=== PATIENT | female | born 1945 | race Caucasian/White ===

== ENCOUNTER → 2016-12-17 | Outpatient (CLI) | payer OTHER ==
[~2016-12-17] MED LIST: APR10 PO; CPR500 PO; DOCU100C31 PO; ESTR0.3T PO; LORA-741 PO; LRS10 PO; MAGN400T6 PO; MELA1TAB54 PO; METO50TA16 PO; MULT-506 PO; RXC5 PO; SIMV20TA5 PO; ZNTT/150 PO
--- NOTE | 2016-12-17 09:43 | DIAGNOSTIC IMAGING REPORT ---
PELVIS 1 OR 2 VIEWS CLINICAL HISTORY: HIP PAIN pain COMPARISON: 04/15/2011 DISCUSSION: Pre-existing total right hip arthroplasty. Significant degenerative narrowing left joint space. Mild sclerosis acetabular margins. No evidence for acetabular protrusion. Moderate degenerative change sacroiliac joints. There is no evidence for soft tissue swelling. IMPRESSION: 1. Moderate/significant narrowing left hip joint space. 2. Status post total right hip prosthetic. 3. Moderate degenerative change sacroiliac joints. Electronically signed by: Nico Lu M.D. 12/17/2016 9:42 AM Dictated Date/Time: 12/17/2016 9:40 AM
== END | disposition home or self-care (01) ==
LOC: C.RDSM 15:54
PROVIDERS: ATTEND Family Medicine
DX: M25.559 Pain in unspecified hip (principal); Z96.641 Presence of right artificial hip joint

== ENCOUNTER → 2017-05-31 | Outpatient (CLI) | payer OTHER ==
--- NOTE | 2017-05-31 09:36 | DIAGNOSTIC IMAGING REPORT ---
RIGHT FOOT 3 VIEWS CLINICAL HISTORY: Right foot pain. FINDINGS: 3 views of the right foot are obtained. No prior studies are available for comparison at the time of dictation. The skeletal structures are osteopenic. No fracture is seen. There is a hammertoe deformity of the fifth toe. Mild arthritic change is present the first metatarsophalangeal joint. There is degenerative change with slight offset at the second tarsometatarsal articulation as well as widening between the base of the first and second metatarsals. This suggests chronic Lisfranc injury. Degenerative spurring is seen along the dorsal aspect of the tarsal bones. There is a large plantar calcaneal enthesophyte. The overlying soft tissues are within normal limits. IMPRESSION: 1. Osteopenia and arthritic change as above. No fracture is seen. 2. Findings suggest chronic Lisfranc injury. 3. Large plantar heel spur. Electronically signed by: Amador Medina M.D. 05/31/2017 9:35 AM Dictated Date/Time: 05/31/2017 9:33 AM
--- NOTE | 2017-05-31 09:44 | DIAGNOSTIC IMAGING REPORT ---
LEFT FOOT MIN 3 VIEWS CLINICAL HISTORY: 71 years-old Female presenting with chronic bilateral foot pain. TECHNIQUE: Frontal, oblique, and lateral views of the left foot were obtained. COMPARISON: Comparison made to plain radiographs of the right foot performed the same time. FINDINGS: Osteopenia. This limits evaluation for nondisplaced fracture. Within this limitation, no acute fracture or acute malalignment. Apparent malalignment of the fifth toe likely positional in chronic. Extensive severe degenerative change at the tarsometatarsal articulations involving the first through fifth metatarsal bases. Slight loss of height of the longitudinal arch. Small bone spur at the inferior calcaneus. IMPRESSION: 1. Osteopenia. 2. No radiographic evidence of acute osseous injury allowing for osteopenia. 3. Severe degenerative change of the tarsometatarsal articulations. Electronically signed by: Joe Duong M.D. 05/31/2017 9:43 AM Dictated Date/Time: 05/31/2017 9:40 AM
== END | disposition home or self-care (01) ==
LOC: C.RDSM 18:19
PROVIDERS: ATTEND Family Medicine
DX: M79.671 Pain in right foot (principal); M79.672 Pain in left foot